=== PATIENT | female | born 1970 | race Caucasian/White ===

== ENCOUNTER 2021-07-17 10:39 | Emergency (ER) | payer BC ==
[2021-07-17] MEDS ORDERED: Orphenadrine 60 MG/2 ML Inj IM ONE (12:11)
[2021-07-17] MEDS ORDERED: Ketorolac 60 MG/2 ML SDV IM ONE (12:11)
--- NOTE | 2021-07-17 13:29 | CR ---
INDICATION: Right-sided rib pain TECHNIQUE: PA view of the chest and 3 views of the right ribs COMPARISON: PA and lateral chest radiographs 05/30/2015 FINDINGS: There is no evidence of acute displaced rib fracture or rib lesion. There is no pleural effusion or pneumothorax. The lungs are clear. The cardiomediastinal silhouette is normal. IMPRESSION: No acute abnormality. Dictated by Caprice Lai MD @ 07/17/2021 1:27:56 PM (Electronically Signed)
--- NOTE | 2021-07-17 13:33 | EDM.PDOC ---
ED HPI GENERAL MEDICAL PROBLEM - General Chief Complaint: General Stated Complaint: RIGHT SIDE RIBS HURT Time Seen by Provider: 07/17/21 10:41 Source of Information: Reports: Patient History Limitations: Reports: No Limitations - History of Present Illness INITIAL COMMENTS - FREE TEXT/NARRATIVE: HISTORY AND PHYSICAL: History of present illness: Patient is a 51-year-old female who presents emergency room today with concern of right-sided rib pain that has been ongoing for the past several weeks but has worsened over the past several days. Patient states that she does have an appointment on Thursday with her primary care provider in regards to this complaint but states that the pain is more significant today so came to the emergency room for further evaluation. Patient denies any trauma or injury to the ribs and feels like she is having a "muscle spasm" overlying the ribs on her right sided rib cage. Patient states that she has pain with pressing on this area and with movement of the ribs. Patient denies any blood in her urine or difficulties with urination or any other symptoms or concerns. Patient states she has not taken anything today for her pain. Patient denies fever, chills, chest pain, shortness of breath, or cough. Denies headache, neck stiff ness, change in vision, syncope, or near syncope. Denies nausea, vomiting, abdominal pain, diarrhea, constipation, or dysuria. Has not noted any blood in urine or stool. Patient has been eating and drinking appropriately. Review of systems: As per history of present illness and below otherwise all systems reviewed and negative. Past medical history: As per history of present illness and as reviewed below otherwise noncontributory. Surgical history: As per history of present illness and as reviewed below otherwise noncontributory. Social history: See social history for further information Family history: As per history of present illness and as reviewed below otherwise noncontributory. Physical exam: General: Patient is alert, oriented, and in no acute distress. Patient sitting comfortably on exam table. Vitals stable and reviewed by me HEENT: Atraumatic, normocephalic, pupils equal and reactive bilaterally, negative for conjunctival pallor or scleral icterus, mucous membranes moist, throat clear, neck supple, nontender, trachea midline. No drooling or trismus noted. No meningeal signs. No hot potato voice noted. Lungschest: Patient has pain to palpation of the ribs on the right sided ribs numbers 6 through 9 axillary line area without evidence of any rash. Otherwise, clear to auscultation, breath sounds equal bilaterally, chest nontender. Heart: S1S2, regular rate and rhythm without overt murmur Abdomen: Soft, nondistended, nontender. Negative for masses or hepatosp lenomegaly. Negative for costovertebral tenderness. Pelvis: Stable nontender. Genitourinary: Deferred. Rectal: Deferred. Skin: Intact, warm, dry. No lesions or rashes noted. Extremities: Atraumatic, negative for cords or calf pain. Neurovascular unremarkable. Neuro: Awake, alert, oriented. Cranial nerves II through XII unremarkable. Cerebellum unremarkable. Motor and sensory unremarkable throughout. Exam nonfocal. Notes: Signs and symptoms are prompt return to the ED thoroughly discussed with patient. Discussed importance for follow-up with a primary care provider. Voices understanding and is agreeable to plan of care. Denies any further questions or concerns at this time. Diagnostics: UA, Uhcg, Rib w chest RT Therapeutics: Toradol, Norflex Prescription: Diclofenac, Flexeril Impression: Right rib pain Plan: 1. The medication you received today does cause drowsiness, so do not drive for the remaining day. 2. When resting please lay on a flat firm surface. Limit your mobility to prevent muscle stiffness. Get up to ambulate/move around/gentle stretching multiple times throughout the day. May alternate heat and ice to painful areas. 3. Tylenol as needed for back pain. Otherwise, take the prescribed Flexeril and diclofenac as directed. Diclofenac as an anti-inflammatory medication so do not take any additional NSAIDs with this medication, such as naproxen, ibuprofen, or Aleve. Flexeril, this medication may cause drowsiness, so do not take it while driving or needing to be functioning outside of the home. 4. Follow-up with your primary care provider as discussed. Return to the ED as needed and as discussed. Definitive disposition and diagnosis as appropriate pending reevaluation and review of above. Treatments TRAVEL OT: Reports: NSAIDS R rib Pain Score (Numeric/FACES): 10 - Related Data Allergies Allergy/AdvReac Type Severity Reaction Status Date / Time Penicillins Allergy Cannot Verified 07/17/21 11:41 Remember sulfamethoxazole Allergy Cannot Verified 07/17/21 11:41 [From Bactrim] Remember trimethoprim [From Bactrim] Allergy Cannot Verified 07/17/21 11:41 Remember Home Meds: Home Meds Enalapril/Hydrochlorothiazide [Enalapril-HCTZ 10-25 MG] 1 each PO DAILY 03/05/16 [History] Metoprolol Succinate [Toprol XL] 50 mg PO DAILY 03/05/16 [History] buPROPion [buPROPion XL] 1 tab PO BID 03/05/16 [History] ALPRAZolam [ALPRAZolam ODT] 25 mg PO Q8HR PRN 08/23/18 [History] Furosemide [Lasix] 20 mg PO DAILY 08/23/18 [History] amLODIPine Besylate [Amlodipine Besylate] 10 mg PO DAILY 08/23/18 [History] Cyclobenzaprine [Flexeril] 10 mg PO TID PRN #9 tab 07/17/21 [Rx] Diclofenac Sodium [Voltaren] 75 mg PO BIDMEALS PRN #15 tab.cr 07/17/21 [Rx] Potassium Chloride 20 meq PO DAILY 07/17/21 [History] Rosuvastatin [Crestor] 10 mg PO DAILY 07/17/21 [History] Past Medical History HEENT History: Reports: None Cardiovascular History: Reports: High Cholesterol, Hypertension Respiratory History: Reports: None Gastrointestinal History: Reports: None Genitourinary History: Reports: None [employer] History: Reports: Musculoskeletal History: Reports: None Neurological History: Reports: None Psychiatric History: Reports: Anxiety Endocrine/Metabolic History: Reports: Diabetes, Type II, Obesity/BMI 30+ Hematologic History: Reports: None Immunologic History: Reports: None Oncologic (Cancer) History: Reports: None Dermatologic History: Reports: None - Infectious Disease History Infectious Disease History: Reports: Chicken Pox - Past Surgical History Head Surgeries/Procedures: Reports: None HEENT Surgical History: Reports: None Female Surgical History: Reports: D&C Social & Family History - Family History Family Medical History: No Pertinent Family History - Tobacco Use Tobacco Use Status *Q: Never Tobacco User - Caffeine Use Caffeine Use: Reports: Coffee - Recreational Drug Use Recreational Drug Use: No ED ROS GENERAL - Review of Systems Review Of Systems: Comprehensive ROS is negative, except as noted in HPI. ED EXAM, GENERAL - Physical Exam Exam: See Below (see dictation) Course - Vital Signs Last Recorded V/S: Last Vital Signs Temp 98.4 F 07/17/21 11:43 Pulse 62 07/17/21 11:43 Resp 18 07/17/21 11:43 BP 120/65 07/17/21 11:43 Pulse Ox 94 L 07/17/21 11:43 - Orders/Labs/Meds Labs: Laboratory Tests 07/17/21 07/17/21 Range/Units 11:53 11:53 Urine Color YELLOW Urine Appearance CLEAR Urine pH 5.5 (5.0-8.0) Ur Specific [place] 1.015 (1.001-1.035) Urine Protein NEGATIVE (NEGATIVE) mg/dL Urine Glucose (UA) NEGATIVE (NEGATIVE) mg/dL Urine Ketones NEGATIVE (NEGATIVE) mg/dL Urine Occult Blood SMALL H (NEGATIVE) Urine Nitrite NEGATIVE (NEGATIVE) Urine Bilirubin NEGATIVE (NEGATIVE) Urine Urobilinogen 0.2 (<2.0) EU/dL Ur Leukocyte Esterase NEGATIVE (NEGATIVE) Urine RBC 0-2 (0-2/HPF) Urine WBC 0-1 (0-5/HPF) Ur Epithelial Cells RARE (NONE-FEW) Urine Bacteria RARE (NEGATIVE) Urine HCG, Qual NEGATIVE (NEGATIVE) Meds: Medications Discontinued Medications Generic Name Dose Route Start Last Admin Trade Name Freq PRN Reason Stop Dose Admin Ketorolac Tromethamine 60 mg 07/17/21 12:11 07/17/21 12:39 Ketorolac 60 Mg/2 Ml Sdv IM 07/17/21 12:12 60 mg ONETIME ONE Administration Orphenadrine Citrate 60 mg 07/17/21 12:11 07/17/21 12:38 Orphenadrine 60 Mg/2 Ml Inj IM 07/17/21 12:12 60 mg ONETIME ONE Administration Departure - Departure Time of Disposition: 13:32 Disposition: Home, Self-Care 01 Clinical Impression: Rib pain on right side - Discharge Information Prescriptions: Cyclobenzaprine [Flexeril] 10 mg PO TID PRN #9 tab PRN Reason: Spasms Diclofenac Sodium [Voltaren] 75 mg PO BIDMEALS PRN #15 tab.cr PRN Reason: Pain Referrals: Jj Tracy MD [Primary Care Provider] - Forms: ED Department Discharge Additional Instructions: The following information is given to patients seen in the emergency department who are being discharged to home. This information is to outline your options for follow-up care. We provide all patients seen in our emergency department with a follow-up referral. The need for follow-up, as well as the timing and circumstances, are variable depending upon the specifics of your emergency department visit. If you don't have a primary care physician on staff, we will provide you with a referral. We always advise you to contact your personal physician following an emergency department visit to inform them of the circumstance of the visit and for follow-up with them and/or the need for any referrals to a consulting specialist. The emergency department will also refer you to a specialist when appropriate. This referral assures that you have the opportunity for follow-up care with a specialist. All of these measure are taken in an effort to provide you with optimal care, which includes your follow-up. Under all circumstances we always encourage you to contact your private physician who remains a resource for coordinating your care. When calling for follow-up care, please make the office aware that this follow-up is from your recent emergency room visit. If for any reason you are refused follow-up, please contact the [facility] Emergency Department at and asked to speak to the emergency department charge nurse. [facility] [address] [place] [id number] [facility] [address] [place] [id number] 1. The medication you received today does cause drowsiness, so do not drive for the remaining day. 2. When resting please lay on a flat firm surface. Limit your mobility to prevent muscle stiffness. Get up to ambulate/move around/gentle stretching multiple times throughout the day. May alternate heat and ice to painful areas. 3. Tylenol as needed for back pain. Otherwise, take the prescribed Flexeril and diclofenac as directed. Diclofenac as an anti-inflammatory medication so do not take any additional NSAIDs with this medication, such as naproxen, ibuprofen, or Aleve. Flexeril, this medication may cause drowsiness, so do not take it while driving or needing to be functioning outside of the home. 4. Follow-up with your primary care provider as discussed. Return to the ED as needed and as discussed. Sepsis Event Note (ED) - Evaluation Sepsis Screening Result: No Definite Risk - Focused Exam Vital Signs: Vital Signs Temp Pulse Resp BP Pulse Ox 07/17/21 11:43 98.4 F 62 18 120/65 94 L
[2021-07-17 13:51] VITALS: BP 108/66; PULSE 56
== END 2021-07-17 13:53 | disposition home or self-care (01) ==
LOC: MW.ED 10:39
DX: R07.81 Pleurodynia (principal); E78.00 Pure hypercholesterolemia, unspecified; I10 Essential (primary) hypertension; E11.9 Type 2 diabetes mellitus without complications; E66.9 Obesity, unspecified; Z68.33 Body mass index [BMI] 33.0-33.9, adult; Z88.0 Allergy status to penicillin; Z88.2 Allergy status to sulfonamides; Z79.899 Other long term (current) drug therapy
CPT/HCPCS: 71101; 81001; 81025; 96372; 99283; J1885; J2360

== ENCOUNTER 2022-10-11 01:30 | Emergency (ER) | payer BC ==
[2022-10-11] MEDS ORDERED: Dexamethasone 10 MG/ML SDV PO ONE (02:08)
[2022-10-11 02:48] VITALS: BP 142/82; PULSE 88
== END 2022-10-11 02:49 | disposition home or self-care (01) ==
LOC: MW.ED 01:30
DX: B34.9 Viral infection, unspecified (principal); E78.00 Pure hypercholesterolemia, unspecified; I10 Essential (primary) hypertension; E11.9 Type 2 diabetes mellitus without complications; E66.9 Obesity, unspecified; Z68.31 Body mass index [BMI] 31.0-31.9, adult; Z88.0 Allergy status to penicillin; Z88.2 Allergy status to sulfonamides; Z79.899 Other long term (current) drug therapy
CPT/HCPCS: 99283; J8540